=== PATIENT | male | born 1995 | race Caucasian/White ===

== ENCOUNTER 2017-08-18 17:55 | Emergency (ER) | payer BC ==
[2017-08-18 18:07] VITALS: TEMP 99.5
[2017-08-18] MEDS ORDERED: NS 1,000 ML IV ONE ×2 (18:11→18:40)
[2017-08-18] MEDS ORDERED: ONDANSETRON 4 MG/2 ML VIAL IVP ONE (18:11)
--- NOTE | 2017-08-18 18:16 | EDPHY ---
H & P Time Seen by Provider: 08/18/17 18:09 HPI/ROS: CHIEF COMPLAINT: Nausea, vomiting, abdominal pain HISTORY OF PRESENT ILLNESS: The patient is a 22 y/o male complaining of vomiting since 22:00 last night. Multiple episodes of vomiting since then. He last vomited at 16:30, 2 hours ago. Associated with mild lower abd cramping. Tolerating some oral fluids. He took Pepto-Bismol with no relief of symptoms. Denies knowing anyone with similar symptoms. Denies diarrhea, cough, headache, urinary complaints or other pertinent symptoms. REVIEW OF SYSTEMS: Aside from elements discussed in the HPI, a comprehensive 10-point review of systems was reviewed and is negative. Past Medical/Surgical History: Heart valve repair Social History: Student at , nonsmoker Smoking Status: Never smoked Physical Exam: General Appearance: Alert, pleasant Eyes: Pupils equal and round, no conjunctival pallor or injection ENT, Mouth: Mucous membranes moist Neck: Normal inspection Respiratory: Lungs are clear to auscultation Cardiovascular: Regular rate and rhythm Gastrointestinal: Mild lower abdominal tenderness. No localized tenderness. Abdomen is soft. Neurological: A&O, nonfocal Skin: Warm and dry, no rash Extremities: Nontender, no pedal edema Psychiatric: Mood and affect normal Constitutional: Initial Vital Signs Temperature (C) 37.5 C 08/18/17 18:00 Heart Rate 128 H 08/18/17 18:00 Respiratory Rate 18 08/18/17 18:00 Blood Pressure 135/79 H 08/18/17 18:00 O2 Sat (%) 96 08/18/17 18:00 O2 Delivery Mode Room Air Allergies/Adverse Reactions: No Known Allergies Allergy (Unverified 08/18/17 18:04) Home Medications: Medication Instructions Recorded NK [No Known Home Meds] 08/18/17 Medical Decision Making ED Course/Re-evaluation: The patient is a 22 y/o male presenting with nausea and vomiting since 22:00 last night. On exam he has mild lower abdominal tenderness. Sx c/w acute gastritis. Doubt appendicitis; precautions given. 4mg PO Zofran and 1L IV NS administered. Multiple students with similar sx seen in this ED today. Reassessed patient, he is feeling better after Zofran and fluids. Abd remains benign. No RLQ tenderness. Return precautions provided; patient is comfortable with this plan. Differential Diagnosis: includes though not limited to appy, SBO, acute colitis, pancreatitis - Data Points Medications Given: Discontinued Medications Sodium Chloride (Ns) 1,000 mls @ 0 mls/hr IV EDNOW ONE; Wide Open PRN Reason: Protocol Stop: 08/18/17 18:12 Last Admin: 08/18/17 19:07 Dose: Not Given Sodium Chloride (Ns) 1,000 mls @ 3,000 mls/hr IV ONCE ONE Stop: 08/18/17 18:59 Last Admin: 08/18/17 18:55 Dose: 1,000 mls Ondansetron HCl (Zofran) 4 mg IVP EDNOW ONE Stop: 08/18/17 18:12 Last Admin: 08/18/17 19:07 Dose: Not Given Ondansetron HCl (Zofran Odt) 4 mg PO EDNOW ONE Stop: 08/18/17 18:20 Last Admin: 08/18/17 18:31 Dose: 4 mg Ondansetron HCl (Zofran Odt 4 Mg Prepack#2) 1 btl TAKEHOME EDNOW ONE Stop: 08/18/17 18:20 Last Admin: 08/18/17 18:30 Dose: 1 btl Departure - Departure Disposition: Home, Routine, Self-Care Clinical Impression: Gastritis Qualifiers: Gastritis type: unspecified gastritis Chronicity: acute Gastritis bleeding: without bleeding Qualified Code(s): K29.00 - Acute gastritis without bleeding Vomiting Qualifiers: Vomiting type: unspecified Vomiting Intractability: non-intractable Nausea presence: with nausea Qualified Code(s): R11.2 - Nausea with vomiting, unspecified Condition: Good Instructions: Gastritis (ED) Additional Instructions: If you develop more pain in your right lower abdomen, please return to the emergency room. Increase fluid intake. Drink only clear fluids for the next 24 hours. Take 4mg oral Zofran as needed for nausea. Take one tablet every 6 hours as needed. Take Tylenol as directed for worsening abdominal pain Follow-up with your primary doctor within 72 hours. Return to the Emergency Department for fever, chest pain, shortness of breath, increasing pain, or other worsening of condition. Referrals: [facility],. [Clinic] - As per Instructions Report Scribed for: Bing Rodriguez Report Scribed by: Felisha Nowak Date of Report: 08/18/17 Time of Report: 18:21 Physician Review and Approval Statement: 08/18/17 18:21 Portions of this note were transcribed by a medical technologist hematology. I personally performed a history, physical exam, medical decision making, and confirmed accuracy of information the transcribed note.
[2017-08-18] MEDS ORDERED: ONDANSETRON DISINTEGRATING 4 MG TAB PO ONE (18:19)
[2017-08-18] MEDS ORDERED: ONDANSETRON 4MG PREPACK#2 BTL TAKEHOME ONE (18:19)
[2017-08-18 19:43] VITALS: BP 129/78; PULSE 115; RESP 16; O2SAT 97
== END 2017-08-18 19:41 | disposition home or self-care (01) ==
DX: K29.00 Acute gastritis without bleeding (principal)

== ENCOUNTER 2017-09-26 16:57 | Emergency (ER) | payer BC ==
[2017-09-26 17:02] VITALS: RESP 18
--- NOTE | 2017-09-26 17:14 | CPEKG ---
Heart Rate: 90 RR Interval: 667 P-R Interval: 168 QRSD Interval: 104 QT Interval: 352 QTC Interval: 431 P [place]: 43 QRS [place]: 18 T Wave [place]: 49 EKG Severity - BORDERLINE ECG - EKG Impression: SINUS RHYTHM EKG Impression: BORDERLINE Q WAVES IN LATERAL LEADS EKG Impression: LATERAL Q WAVES, PROBABLY NORMAL VARIATION Electronically Signed By: Juan Manuel Villa 26-Sep-2017 21:26:33
--- NOTE | 2017-09-26 17:14 | EDPHY ---
General - History Smoking Status: Never smoked Narrative: CHIEF COMPLAINT: Chest pain, shortness of breath HISTORY OF PRESENT ILLNESS: Patient complains of 2 days history of chest pressure and shortness of breath. [id number]. Constant duration. Worse with exertion. Worse when leaning forward. Improvement when supine in when resting. No sharp pain. Described as a pressure. No fever. No cough. No trauma. He did have a pulmonic valve replacement on September 17 in [place]. He felt well approximately 2 days after this until 2 days ago. He has not yet been evaluated postoperatively since discharge. No other associated complaints or modifying factors. REVIEW OF SYSTEMS: Ten systems reviewed and are negative unless otherwise noted in the HPI PCP: In [facility] SPECIALISTS: Dr. Ori Baer, conventions assistant in [place] PAST MEDICAL HISTORY: Congenital pulmonic valve dysfunction PAST SURGICAL HISTORY: Pulmonic valve replacement x3 SOCIAL HISTORY: Nonsmoker. [employer] student FAMILY HISTORY: Noncontributory EXAMINATION General Appearance: Alert, no distress, well-appearing Head: normocephalic, atraumatic Eyes: Pupils equal and round, no conjunctival pallor or injection ENT, Mouth: Mucous membranes moist. Airway widely patent Neck: Normal inspection, supple, non-tender Respiratory: Lungs are clear to auscultation. No wheezing, rhonchi or crackles. No diminishment. No consolidation or distress Cardiovascular: Regular rate and rhythm. Diastolic murmur. Gastrointestinal: Abdomen is soft and nontender Back: non-tender, no bony abnormalities Neurological: A&O, nonfocal, normal gait Skin: Warm and dry, no rash. No petechiae or purpura Extremities: Nontender, no pedal edema Psychiatric: Mood and affect normal DIFFERENTIAL DIAGNOSES: Including but not limited to PE, ACS, pleural effusion, pericardial effusion, cardiac tamponade, myocarditis, pulmonic valve dysfunction, pneumonia, atelectasis MDM: 5:15 p.m. Two days of mild chest pressure and shortness of breath in patient with recent pulmonic valve replacement on September 17. He is well-appearing and nontoxic. Vital signs are within normal limits. I have discussed with Dr. Villa. laboratory studies ordered, IV placement, echocardiogram ordered hand. He EKG is unremarkable. He is resting comfortably in no acute distress. 6:05 p.m. CBC chemistry a in coags are within normal limits. D-dimer pending. Troponin pending. 6:20 p.m. D-dimer within normal limits. Troponin negative. BNP normal. Chest x-ray as read by me reveals no acute findings. 6:44 p.m. Notified by conventions assistant Dr. Waterman. Echocardiogram the read as a normal study. 7:00 p.m. Patient re-evaluated. Resting comfortably in no acute distress. We discussed all of the negative findings and a normal echocardiogram. We discussed discharge home with anti-inflammatories. We discussed ED precautions and following up with the local conventions assistant to establish patient care. He is comfortable with this plan at this time he will be discharged home in stable condition. SUPERVISION: Patient was evaluated and examined in conjunction with my secondary supervising physician as documented. We have both examined the patient. (Sundeep Martinez) Medical Decision Making: I did not see this patient when he was in the ED. However, I discussed the patient's care with the PA while the patient was in the emergency department. I agree with treatment plan and management. I am the secondary supervising physician (Juan Manuel Villa) - Objective Vital Signs: Initial Vital Signs Temperature (C) 36.4 C 09/26/17 16:59 Heart Rate 82 09/26/17 16:59 Respiratory Rate 18 09/26/17 16:59 Blood Pressure 136/106 H 09/26/17 16:59 O2 Sat (%) 97 09/26/17 16:59 O2 Delivery Mode Room Air Allergies/Adverse Reactions: No Known Allergies Allergy (Verified 09/26/17 16:59) Home Medications: Medication Instructions Recorded ASPIRIN 09/26/17 Laboratory Results: Laboratory Results 09/26/17 17:26 09/26/17 17:26 Departure - Departure Disposition: Home, Routine, Self-Care Clinical Impression: H/O pulmonic valve replacement Chest pain Qualifiers: Chest pain type: unspecified Qualified Code(s): R07.9 - Chest pain, unspecified Condition: Good Instructions: Chest Pain (ED), Congenital Heart Disease (ED) Additional Instructions: 1. Contact the on-call conventions assistant as provided to established local care 2. Discuss with your conventions assistant in [place] 3. ED precautions as discussed Referrals: Bala Waterman MD [Medical Doctor] - As per Instructions
[2017-09-26 17:32] LABS: PLATELET COUNT 313 10^3/uL (150-400)
[2017-09-26 18:02] LABS: INR 0.98 (0.83-1.16); PROTIME(PATIENT) 13.2 SEC (12.0-15.0)
[2017-09-26 18:50] VITALS: BP 132/77; PULSE 91; O2SAT 98
[2017-09-26 19:10] VITALS: TEMP 99
--- NOTE | 2017-09-26 19:37 | ECHO ---
[email or web address] [address] [address] Main: [phone] Fax: Transthoracic Echocardiogram Name: IRA LORENZO MR#: [id number] Study Date: 09/26/2017 Study Time: 05:42 PM Date of : 1995 Age: 22 year(s) Height: 182.9 cm (72 in.) Weight: 102.06 kg (225 lb.) BSA: 2.24 m2 Gender: Male Examination: Echo Indication: Chest pain/SOB x 2 days (PV surgery last week - Sloane valve) / hx of Ross procedure age 1 Image Quality: Contrast: Requested by: Sundeep Martinez BP: 112 mmHg/61 mmHg Heart Rate: Rhythm: Indication: Chest pain/SOB x 2 days (PV surgery last week - Sloane valve) / hx of Ross procedure age 1 Procedure Staff Java Flex Developer: Penelope Cartagena Reading Physician: Sybil Chen Requesting Provider: Conclusions: Normal size left ventricle. No LV hypertrophy. Normal global systolic LV function. EF is 64 %. There is paradoxic septal motion suggestive of bundle branch block, paced cardiac rhythm, or prior cardiac surgery. Normal size right ventricle. Normal RV function. The right atrium is borderline dilated. Trivial to mild mitral regurgitation. The valve in the aortic position is the patient's rampart pulmonic valve. Normal function without stenosis or regurgitation. Patient is s/p Sloane valve implant in the pulmonic position. PV max PG is 25mmHG. PV mean PG is 14mmHG.. There is no previous echocardiogram for comparison. Measurements: Chambers Valvular Assessment AV/MV Valvular Assessment TV/PV Normal Normal Normal Name Value Range Name Value Range Name Value Range Ao Evon (MM): 3.6 cm (2.2 cm-3.7 AV Vmax: 1.37 m/s (1 m/s-1.7 PV Vmax: 2.42 m/s (0.6 m/s-0.9 cm) m/s) m/s) IVSd (2D): 0.7 cm (0.6 cm-1.1 AV maxP mmHg ( - ) PV Vmean: 1.59 m/s ( - ) cm) AV meanP mmHg ( - ) PV PGmax: 23 mmHg ( - ) LVDd (2D): 5.2 cm (4.2 cm-5.9 MV E Vmax: 0.86 m/s ( - ) PV PGmean: 13 mmHg ( - ) cm) MV A Vmax: 0.57 m/s ( - ) PV VTI: 47.10 cm ( - ) LVDs (2D): 3.7 cm (2.1 cm-4 MV E/A: 1.51 ( - ) cm) Patient: IRA LORENZO Study Date: 09/26/2017 Page 1 of 2 05:42 PM LVPWd (2D): 0.7 cm (0.6 cm-1 cm) LVEF (MOD4): 64 % (>=55 %) Continued Measurements: Chambers Valvular Assessment AV/MV Name Value Name Value LADs: 4.3 cm MV E/E' Septal: 9.00 LADs Lon.0 cm MV E/E' Lateral: 5.80 LA Area: 15.6 cm2 Additional Vessels Name Value Ao Ascendin.7 cm Findings: Left Ventricle: Normal size left ventricle. No LV hypertrophy. Normal global systolic LV function. EF is 64 %. There is paradoxic septal motion suggestive of bundle branch block, paced cardiac rhythm, or prior cardiac surgery. Right Ventricle: Normal size right ventricle. Normal RV function. Left Atrium: The left atrium is normal in size. Right Atrium: The right atrium is borderline dilated. Mitral Valve: The mitral valve is normal in appearance and function. Trivial to mild mitral regurgitation. Aortic Valve: The valve in the aortic position is the patient's rampart pulmonic valve. Normal function without stenosis or regurgitation. Tricuspid Valve: The tricuspid valve is normal in appearance and function. Trivial tricuspid valve regurgitation. Pulmonic Valve: Patient is s/p Sloane valve implant in the pulmonic position. PV max PG is 25mmHG. PV mean PG is 14mmHG.. Aorta: The aorta is normal. Pericardium: No pericardial effusion. (No Signature Object) Patient: IRA LORENZO Study Date: 09/26/2017 Page 2 of 2 05:42 PM D:_[id number]
== END 2017-09-26 19:09 | disposition home or self-care (01) ==
DX: R07.9 Chest pain, unspecified (principal); Z79.82 Long term (current) use of aspirin; Z95.2 Presence of prosthetic heart valve

== ENCOUNTER 2018-05-25 17:54 | Observation (INO) | payer BC ==
--- NOTE | 2018-05-25 18:09 | EDPHY ---
H & P Stated Complaint: ETOH 3 DAYS AGO HAS FELT ABD DISTRESS/NAUSEA/DIZZYNESS Time Seen by Provider: 05/25/18 18:08 HPI/ROS: CHIEF COMPLAINT: Withdrawal symptoms HISTORY OF PRESENT ILLNESS: The patient presents the emergency department with complaints of withdrawal symptoms over the past several days. The patient reported he had been drinking heavily. He reportedly brought benzodiazepine like drug from the Internet several weeks ago. He reports that over the past 2 weeks he has used approximately 100 mg of Etizolam. The patient last used to 1 mg dose on Saturday. His last drink was on . The patient is also complaining of some mild upper respiratory congestion and slight nausea. He reports his roommates are also sick with similar symptoms. The patient's past medical history is significant for pulmonic valve replacement last year. He denies any complaints of chest pain or dyspnea. REVIEW OF SYSTEMS: A comprehensive 10 point review of systems is otherwise negative aside from elements mentioned in the history of present illness. Source: Patient Exam Limitations: No limitations - Personal History Current Tetanus Diphtheria and Acellular Pertussis (TDAP): Yes - Medical/Surgical History Hx Asthma: No Hx Chronic Respiratory Disease: No Hx Diabetes: No Hx Cardiac Disease: Yes Hx Renal Disease: No Hx Cirrhosis: No Hx Alcoholism: No Hx HIV/AIDS: No Hx Splenectomy or Spleen Trauma: No Other PMH: heart valve repair (congenital defect) - Social History Smoking Status: Never smoked - Physical Exam Exam: General Appearance: Alert, no distress Eyes: Pupils equal and round no pallor or injection ENT, Mouth: Mucous membranes moist Respiratory: There are no retractions, lungs are clear to auscultation Cardiovascular: Regular rate and rhythm Gastrointestinal: Abdomen is soft and nontender, no masses, bowel sounds normal Neurological: A&O, normal motor function, normal sensory exam, normal cranial nerves Skin: Warm and dry, no rashes Musculoskeletal: Neck is supple nontender Extremities: symmetrical, full range of motion Psychiatric: Patient is oriented X 3, there is no agitation Constitutional: Initial Vital Signs Temperature (C) 37 C 05/25/18 17:58 Heart Rate 96 05/25/18 17:58 Respiratory Rate 18 05/25/18 17:58 Blood Pressure 136/99 H 05/25/18 17:58 O2 Sat (%) 96 05/25/18 17:58 O2 Delivery Mode Room Air Allergies/Adverse Reactions: No Known Allergies Allergy (Verified 05/25/18 17:58) Home Medications: Medication Instructions Recorded Aspirin [Aspirin 81mg (*)] 81 mg PO DAILY 09/26/17 Gabapentin [Neurontin 300 MG (*)] 300 mg PO HS 05/25/18 Medical Decision Making - Diagnostics EKG Interpretation: EKG: Complete interpretation has been separately recorded in the [facility] archive. Summary impression: Sinus rhythm, rate 89 ED Course/Re-evaluation: Database in the emergency department: CBC: Within normal limits Basic metabolic panel within normal limits ED course: The patient presents to the ED with symptoms of mild benzodiazepine withdrawal. The patient is maintaining appropriately. Aside from a very slight tachycardia he has no acute complaints. The patient is quite concerned about the possibility of a withdrawal seizure given the amount of benzodiazepine he has used over the past 2 weeks. The patient would like to be admitted to the hospital for observation this evening. I did discuss the case with Dr. Bansal from the hospitalist service who will admit the patient for observation. The patient required no benzodiazepines in the emergency department. Differential Diagnosis: Differential diagnosis considered includes alcohol withdrawal, benzodiazepine withdrawal, seizure, dehydration, metabolic derangement - Data Points Laboratory Results: Laboratory Results 05/25/18 19:15 05/25/18 19:15 05/25/18 05/25/18 19:15 19:15 WBC 7.23 10^3/uL 10^3/uL (3.80-9.50) RBC 5.32 10^6/uL 10^6/uL (4.40-6.38) Hgb 17.1 g/dL g/dL (13.7-17.5) Hct 48.4 % % (40.0-51.0) MCV 91.0 fL fL (81.5-99.8) MCH 32.1 pg pg (27.9-34.1) MCHC 35.3 g/dL g/dL (32.4-36.7) RDW 12.0 % % (11.5-15.2) Plt Count 284 10^3/uL 10^3/uL (150-400) MPV 9.4 fL fL (8.7-11.7) Neut % (Auto) 68.1 % % (39.3-74.2) Lymph % (Auto) 21.0 % % (15.0-45.0) [place] % (Auto) 9.4 % % (4.5-13.0) Eos % (Auto) 0.3 % L % (0.6-7.6) Baso % (Auto) 0.8 % % (0.3-1.7) Nucleat RBC Rel Count 0.0 % % (0.0-0.2) Absolute Neuts (auto) 4.92 10^3/uL 10^3/uL (1.70-6.50) Absolute Lymphs (auto) 1.52 10^3/uL 10^3/uL (1.00-3.00) Absolute Monos (auto) 0.68 10^3/uL 10^3/uL (0.30-0.80) Absolute Eos (auto) 0.02 10^3/uL L 10^3/uL (0.03-0.40) Absolute Basos (auto) 0.06 10^3/uL 10^3/uL (0.02-0.10) Absolute Nucleated RBC 0.00 10^3/uL 10^3/uL (0-0.01) Immature Gran % 0.4 % % (0.0-1.1) Immature Gran # 0.03 10^3/uL 10^3/uL (0.00-0.10) Sodium 139 mEq/L mEq/L (135-145) Potassium 4.4 mEq/L mEq/L (3.3-5.0) Chloride 100 mEq/L mEq/L (97-110) Carbon Dioxide 23 mEq/l mEq/l (22-31) Anion Gap 16 mEq/L mEq/L (8-16) BUN 10 mg/dL mg/dL (7-23) Creatinine 0.7 mg/dL mg/dL (0.7-1.3) Estimated GFR > 60 Glucose 108 mg/dL H mg/dL (70-100) Calcium 10.2 mg/dL mg/dL (8.5-10.4) Medications Given: Discontinued Medications Sodium Chloride (Ns) 1,000 mls @ 0 mls/hr IV EDNOW ONE; Wide Open PRN Reason: Protocol Stop: 05/25/18 18:48 Last Admin: 05/25/18 19:09 Dose: 1,000 mls Departure - Departure
[2018-05-25] MEDS ORDERED: NS 1,000 ML IV ONE (18:47)
--- NOTE | 2018-05-25 19:34 | CPEKG ---
Test Reason : OPEN Blood Pressure : / mmHG Vent. Rate : 089 BPM Atrial Rate : 095 BPM P-R Int : 174 ms QRS Dur : 103 ms QT Int : 339 ms P-R-T Axes : 058 -02 030 degrees QTc Int : 413 ms Normal sinus rhythm Probable left ventricular hypertrophy Confirmed by Jose Simon ([id number]) on 05/25/2018 7:34:17 PM Referred By: Confirmed By:Jose Simon
[2018-05-25 19:38] LABS: PLATELET COUNT 284 10^3/uL (150-400)
[2018-05-25] MEDS ORDERED: PROMETHAZINE HCL 25 MG/ML INJ IVP PRN (21:34)
[2018-05-25] MEDS ORDERED: ONDANSETRON 4 MG/2 ML VIAL IVP PRN (21:34)
[2018-05-25] MEDS ORDERED: diphenhydrAMINE 25 MG CAP PO PRN (21:34)
[2018-05-25] MEDS ORDERED: IBUPROFEN 200 MG TAB PO PRN (21:34)
[2018-05-25] MEDS ORDERED: ACETAMINOPHEN 325 MG TAB PO PRN (21:34)
[2018-05-25] MEDS ORDERED: LORazepam 2 MG/ML INJ IVP PRN (21:37)
[2018-05-25] MEDS ORDERED: LORazepam 1 MG TAB PO PRN (21:37)
--- NOTE | 2018-05-25 21:46 | PDGENHP ---
History and Physical - Chief Complaint Acute anxiety - History of Present Illness Primary care provider: None Primary cardiothoracic surgeon: Dr. Ori Baer HPI: 23-year-old male presenting with acute on chronic anxiety characterized as severe restlessness with associated insomnia, photosensitivity, dry heaves, sinus congestion, sensation of pulsating abdomen with onset of symptoms approximately 2 days ago and duration persistently worsening thereafter. The patient reports that the symptom onset was after a particularly heavy night of drinking, notably on 05/22. The symptoms have occurred in the context of the patient attempting to safely wean himself off of alcohol by utilizing a rapid taper of a benzodiazepine purchased on the Internet. He reports that over the past week, he has been taking tapered dosages of this benzodiazepine but on , he became particularly vulnerable to the urge to drink alcohol, and he went on an alcohol binge that night. On the morning of 05/23, he felt particularly nauseous, was dry heaving, and believes he vomited up his last dosage of the benzodiazepine which he attempted to take that morning. He has subsequently become increasingly anxious, unable to get to sleep until after 3:00 a.m. On a nightly basis, and he feels like his mind is racing with worry regarding whether or not he will have a seizure, whether or not his parents will find out about this, and he has taken 1 dosage of gabapentin without particular improvement. The patient is presenting tonight requesting assistance in withdrawing from alcohol and benzos. History Information - Allergies/Home Medication List Allergies/Adverse Reactions: No Known Allergies Allergy (Verified 05/25/18 17:58) Home Medications: Aspirin [Aspirin 81mg (*)] 81 mg PO DAILY 09/26/17 [Last Taken 05/25/18] Gabapentin [Neurontin 300 MG (*)] 300 mg PO HS 05/25/18 [Last Taken 05/25/18] I have personally reviewed and updated: family history, medical history, social history, surgical history - Past Medical History Additional medical history: Chronic anxiety disorder currently not in treatment. Congenital pulmonic valve abnormality - Surgical History Additional surgical history: 3 pulmonic valve surgeries, most recently 2017. Elbow surgery - Family History Additional family history: Sibling with depression, 3rd degree relative with alcoholism - Social History Smoking Status: Never smoked Alcohol Use: Heavy Drug Use: Marijuana Additional social history: Independent in his ADLs comma he is originally from [place], he is currently a [employer] student Review of Systems Review of Systems: ROS: 10pt was reviewed & negative except for what was stated in HPI & below Constitutional: Reports: malaise Gastrointestinal: Reports: vomitting, nausea Neurological: Reports: other (Anxiety, photosensitivity, insomnia) Physical Exam Physical Exam: Temp Pulse Resp BP Pulse Ox 37 C 115 H 16 158/101 H 96 05/25/18 17:58 05/25/18 20:34 05/25/18 20:34 05/25/18 20:34 05/25/18 20:34 Constitutional: not in pain, obese, uncomfortable, unkempt, No no apparent distress (Mild distress) Eyes: anicteric sclera, scleral injection, other (Dilated pupils) Ears, Nose, Mouth, Throat: moist mucous membranes, hearing normal, ears appear normal, no oral mucosal ulcers Cardiovascular: tachycardia, No systolic murmur, No irregularly irregular, No edema Respiratory: no respiratory distress, no rales or rhonchi, clear to auscultation Gastrointestinal: normoactive bowel sounds, soft, non-tender abdomen, no palpable masses Genitourinary: no bladder fullness, no bladder tenderness Skin: other (Sweaty, doughy, scattered pustules on back) Neurologic: AAOx3, sensation intact bilaterally, other (Very mild bilateral upper extremity tremor), No asterixes Psychiatric: not encephalopathic, thought process linear, anxious, other ( Slightly rapid speech but coherent, follows commands), No agitated Lab Data & Imaging Review 05/25/18 19:15 05/25/18 19:15 WBC 7.23 10^3/uL (3.80-9.50) 05/25/18 19:15 RBC 5.32 10^6/uL (4.40-6.38) 05/25/18 19:15 Hgb 17.1 g/dL (13.7-17.5) 05/25/18 19:15 Hct 48.4 % (40.0-51.0) 05/25/18 19:15 MCV 91.0 fL (81.5-99.8) 05/25/18 19:15 MCH 32.1 pg (27.9-34.1) 05/25/18 19:15 MCHC 35.3 g/dL (32.4-36.7) 05/25/18 19:15 RDW 12.0 % (11.5-15.2) 05/25/18 19:15 Plt Count 284 10^3/uL (150-400) 05/25/18 19:15 MPV 9.4 fL (8.7-11.7) 05/25/18 19:15 Neut % (Auto) 68.1 % (39.3-74.2) 05/25/18 19:15 Lymph % (Auto) 21.0 % (15.0-45.0) 05/25/18 19:15 [place] % (Auto) 9.4 % (4.5-13.0) 05/25/18 19:15 Eos % (Auto) 0.3 % (0.6-7.6) L 05/25/18 19:15 Baso % (Auto) 0.8 % (0.3-1.7) 05/25/18:15 Nucleat RBC Rel Count 0.0 % (0.0-0.2) 05/25/18 19:15 Absolute Neuts (auto) 4.92 10^3/uL (1.70-6.50) 05/25/18 19:15 Absolute Lymphs (auto) 1.52 10^3/uL (1.00-3.00) 05/25/18 19:15 Absolute Monos (auto) 0.68 10^3/uL (0.30-0.80) 05/25/18 19:15 Absolute Eos (auto) 0.02 10^3/uL (0.03-0.40) L 05/25/18 19:15 Absolute Basos (auto) 0.06 10^3/uL (0.02-0.10) 05/25/18 19:15 Absolute Nucleated RBC 0.00 10^3/uL (0-0.01) 05/25/18 19:15 Immature Gran % 0.4 % (0.0-1.1) 05/25/18 19:15 Immature Gran # 0.03 10^3/uL (0.00-0.10) 05/25/18 19:15 Sodium 139 mEq/L (135-145) 05/25/18 19:15 Potassium 4.4 mEq/L (3.3-5.0) 05/25/18 19:15 Chloride 100 mEq/L (97-110) 05/25/18 19:15 Carbon Dioxide 23 mEq/l (22-31) 05/25/18 19:15 Anion Gap 16 mEq/L (8-16) 05/25/18 19:15 BUN 10 mg/dL (7-23) 05/25/18 19:15 Creatinine 0.7 mg/dL (0.7-1.3) 05/25/18 19:15 Estimated GFR > 60 05/25/18 19:15 Glucose 108 mg/dL (70-100) H 05/25/18 19:15 Calcium 10.2 mg/dL (8.5-10.4) 05/25/18 19:15 Lipase 45 IU/L (23-300) 05/25/18 19:15 Visualized and Interpreted EKG results: Yes EKG Interpretation: Positive for: other (Normal sinus rhythm, possible left ventricular hypertrophy) Assessment & Plan Assessment: 23-year-old male presents with acute alcohol withdrawal Plan: 1. Alcohol withdrawal. Acute, new problem this provider, further workup indicated. Evidenced by tachycardia, anxiety, insomnia, GI symptoms, patient is presenting to electively abstain from alcohol and will most likely require assistance in overcoming withdrawal symptoms -the patient's time course for withdrawal will be somewhat skewed by the fact that he has been taking benzodiazepines of unclear strength which he has obtained from the Internet and although he is approximately 48 hours sober, it is unclear whether his utilization of benzodiazepines over the past week will be helpful or harmful easing his transition -patient currently prefers not to use benzodiazepines for withdrawal, but he is open to having them as backup in case his condition escalates, and will place him on the CIWA protocol -given that his primary symptoms currently are nausea and insomnia, will give him Zofran and Phenergan as needed, high-dose trazodone this evening in an attempt to avoid benzos -given his persistent abdominal symptoms and his perseveration on having liver disease, will check a liver panel to reassure, has no other evidence of impaired synthetic function on CBC, lipase normal -get social work assistance tomorrow to help establish him with patient resources 2. Congenital pulmonic valve. Unclear as to the exact abnormality, reviewed his outside records including 09/26/[address] emergency [address] report [address] Dr. Juan Manuel Villa, recounts the patient's presentation for shortness of breath following a recent pulmonic valve surgery on 09/17/2017, echocardiogram demonstrated ejection fraction of 64%, bundle-branch block, pulmonic valve in the aortic valve position but otherwise unremarkable echo -unlikely to be contributing to his current presentation or complicating his care Diet. Regular as tolerated Prophylaxis. Intermediate risk if bed-bound, Lovenox 40 in a.m. Code. Full Disposition. Anticipated discharge 05/26, pending stabilization of condition outlined above. I have discussed patient's presentation with Dr. Heraclio Simon, he and I both agree the patient warrants observation overnight to ensure stabilization of his situation as well as ensure proper outpatient follow-up and guidance regarding management of outpatient medication.
[2018-05-25] MEDS ORDERED: traZODone 50 MG TAB PO SCH (22:00)
[2018-05-25] MEDS: ONDANSETRON DISINTEGRATING 4 MG TAB PO PRN (22:05)
[2018-05-26] MEDS ORDERED: ASPIRIN 81 MG CHEWABLE TAB PO SCH (09:00)
[2018-05-26] MEDS ORDERED: ENOXAPARIN 40 MG/0.4 ML SYR SC SCH (09:00)
[2018-05-26] MEDS: ONDANSETRON DISINTEGRATING 4 MG TAB PO PRN (09:01)
[2018-05-26] MEDS: PROMETHAZINE HCL 25 MG TAB PO PRN ×2 (09:56→15:57)
[2018-05-26] MEDS ORDERED: PANTOPRAZOLE SODIUM 40 MG TAB PO SCH (10:00)
[2018-05-26] MEDS ORDERED: ONDANSETRON DISINTEGRATING 4 MG TAB PO PRN (10:00)
--- NOTE | 2018-05-26 10:08 | HOSPPROG ---
Hospitalist Progress Note Assessment/Plan: DIAGNOSES: * severe anxiety disorder with self medicating using alcohol and Internet at obtained "benzodiazepine" * Patient here seeking help detoxing from these * probable alcohol-induced gastritis causing abdominal pain and nausea * chronic anxiety disorder * Previously most effective therapies have been exercise, good diet, good sleep , and other measures to take care of mental health * Has not obtained benefit from SSRIs in the past IV long discussion with the patient at the bedside today. On review of the patient's issues his anxiety is clearly chronic and has been severe. He has worked with physicians in the past to have prescribed SSRIs which she has never found helpful. He says the most effective way of managing this for him is been daily exercise, and doing other health measures including diet, sleep, mental health exercises. He states that he never used benzodiazepine before the past 2 weeks, and never wants to take them again. He does not remember much of the past 2 weeks because of the use of these medicines and he clearly recognizes that these are very counterproductive for him. I did review with him and he understands that any "medications" that he might get from the Internet should be suspect in terms of what's really in them. At this point he wants to get back to daily exercise, getting good sleep, eating well, and taking care of his mental health in other ways besides medication. However he still too symptomatic from nausea and abdominal pain he feels to be able to go home at this point. PLANS: * At present will need ongoing treatment with benzodiazepine and IV hydration due to nausea abdominal pain * Will add proton pump inhibitor * Will try to avoid using any benzodiazepines here * He is very committed at this time to avoiding alcohol and benzodiazepine use in the future, very committed to going back to exercising and taking care of himself physically and mentally without medications of any kind; he is agreeable to using acid suppression as needed and using p.r.n. Trazodone for sleep if necessary * Potential discharge later today or tomorrow depending on how he is doing with his nausea; if nausea persists through the day and he requires ongoing treatment here will change him to inpatient care SUBJECTIVE: Patient has severe nausea ongoing along with some mild epigastric pain Feels lightheaded, but at this moment does not feel any significant anxiety Denies any confusion or delirium symptoms or tremor OBJECTIVE Vitals reviewed: Blood pressures improved otherwise stable vitals with no fever Exam: alert oriented Not really very anxious now but looks uncomfortable from nausea No tremor, no signs of confusion or disorientation, normal affect and interacts normally with me at this time skin warm dry color ok resps not labored lungs clear BSs heart regular abd soft nondistended nontender, bowel sounds present limbs warm, no edema iv site ok Objective: Vital Signs Temp Pulse Resp BP Pulse Ox 36.8 C 70 16 113/62 95 05/26/18 08:06 05/26/18 08:06 05/26/18 08:06 05/26/18 08:06 05/26/18 04:00 05/25/18 05/26/18 05/27/18 06:59 06:59 06:59 Intake Total 1000 Balance 1000 - Time Spent With Patient Time Spent with Patient: greater than 35 minutes Time Spent with Patient: Greater than 35 minutes spent on this patients care, greater than 50% of time spent counseling, educating, and coordinating care regarding the above mentioned plan. ICD10 Worksheet Patient Problems: Problems Problem Status Onset Chest pain Acute Gastritis Acute H/O pulmonic valve replacement Acute
--- NOTE | 2018-05-26 12:30 | ASMTCMCOM ---
CM Note CM Note Notes: Pts case discussed w/ RA Tamayo. Pt is a 23 y/o man admitted for benzo withdrawals. Pt has a hx of abusing etoh. Pt was trying to detox himself at home w/ benzos. CM met w/ pt. CM provided pt w/ a list of AA meetings in [place]. CM provided pt w/ a list of potential therapist that he could see. CAGE completed. CM recommended pt going to [facility] at if he needed more assistance w/ his etoh. No other needs at this time. CM available for changes. Plan: Independent Date Signed: 05/26/2018 12:27 PM Electronically Signed By:LILLIE Mcnulty
--- NOTE | 2018-05-26 12:30 | ASMTCAGE ---
CAGE Do you feel you ought to Answers: Yes cut down on your drinking or drug use? Do people annoy you by Answers: No criticizing your drinking or drug use? Do you feel guilty about Answers: No your drinking or drug use? Do you drink or use drugs Answers: Yes first thing in the morning ([employer])? Date Signed: 05/26/2018 12:28 PM Electronically Signed By:LILLIE Mcnulty
[2018-05-26 15:38] VITALS: BP 115/64
--- NOTE | 2018-05-26 17:51 | PDDCSUM ---
Discharge Summary Discharge Summary: DISCHARGE DIAGNOSES: * acute dehydration * nausea vomiting, suspected gastropathy from alcohol and aspirin * exacerbation of chronic anxiety disorder * benzodiazepine abuse * alcohol abuse * patient with self referral for assessment and treatment of all of the above * history of surgery for congenital heart disease HOSPITAL COURSE SUMMARY: This patient who has chronic anxiety disorder that has been refractory to treatment with SSRI therapy but benefitted in the past with exercise and other appropriate measures, began to drink alcohol and also obtained some benzodiazepines 2 weeks ago that he said he got from the Internet. He used both of these substances heavily over the last 2 weeks really in way of self medication for his chronic anxiety issues. He had not been using alcohol in a steady ongoing fashion prior to this but had some alcohol abuse issues in the past. He was admitted here with nausea vomiting dehydration and mild epigastric pain. He is felt to likely to have an alcohol and aspirin induced gastritis. He responded well here to hydration, antiemetics, and acid suppression. He is feeling much better at this time and feels like he can leave the hospital. He is up walking the hallways and is eating and drinking without difficulty. The patient has not shown any signs of any withdrawal which is what I would expect given the short duration of his current use of these substances. The patient discussed at length with providers here that he wished to never use any benzodiazepines ever again, and understood that he was having very inappropriate use of alcohol and feels that he will not have any problem staying away from alcohol at this time. He says he does have exercise, diet, and a variety of other measures he uses for stress reduction that have been at successful for him in the past but he has not been applying any of these recently. He plans to get back to all of those helpful measures at this time. He does feel like he he can get back into the classroom without too much difficulty. He does state however that he is going to go back to [facility] in a couple of days to visit his parents were both physicians, and to make sure he gets back on his feet solidly. He does not feel particularly depressed at this time and does not endorse any suicidal ideation. PENDING TEST RESULTS: None MEDICATION CHANGES: Trazodone as needed for sleep 150 mg at HS Zofran as needed for nausea Zantac 150 mg twice daily for 2-4 weeks FOLLOW-UP PLAN: With student health service at the [employer] in the next 1-2 weeks Greater than 35 minutes bedside and care coordination time today
[2018-05-26] MEDS ORDERED: GABAPENTIN 300 MG CAP PO SCH (21:00)
== END 2018-05-26 18:45 | disposition home or self-care (01) ==
LOC: F3E 21:01
PROVIDERS: ADMIT Internal Medicine; ATTEND Internal Medicine
DX: F10.239 Alcohol dependence with withdrawal, unspecified (principal); E86.0 Dehydration; R11.2 Nausea with vomiting, unspecified; F13.10 Sedative, hypnotic or anxiolytic abuse, uncomplicated; F41.8 Other specified anxiety disorders
CPT/HCPCS: 93005; 96360; 99285; G0378

== ENCOUNTER 2018-12-26 13:23 | Emergency (ER) | payer BC ==
[2018-12-26] MEDS ORDERED: ONDANSETRON 4 MG/2 ML VIAL ONE (15:05)
[2018-12-26] MEDS ORDERED: NS 1,000 ML IV ONE (15:17)
[2018-12-26] MEDS ORDERED: ONDANSETRON 4 MG/2 ML VIAL IVP ONE (15:23)
[2018-12-26 15:36] LABS: PLATELET COUNT 364 10^3/uL (150-400)
--- NOTE | 2018-12-26 15:51 | EDPHY ---
HPI/HX/ROS/PE/MDM Narrative: CHIEF COMPLAINT: Abdominal pain, nausea, diarrhea HPI: This patient is a 23 year old male with history of artificial heart valve and remote history of pancreatitis at age 13. He complains of nausea, stomach pain, and dark-colored diarrhea ongoing since Saturday. He endorses drinking a larger amount of alcohol than usual on Saturday and states he cannot remember all the events of that evening but notes he discovered four of his Zofran tablets were missing the next morning. He denies any vomiting. He has concern for a possible ulcer because two months ago, he had abdominal pain and some blood in his stool, but these symptoms resolved spontaneously. He additionally endorses history of fatty liver. He has established care with gastroenterology and has HIDA scan scheduled for Saturday. He takes ASA 81mg daily due to his heart valve surgeries. He denies chest pain, shortness of breath, weakness, or other associated symptoms. REVIEW OF SYSTEMS: A comprehensive 10 system review of systems is otherwise negative aside from elements mentioned in the history of present illness and medical decision making. PMH: Artificial heart valve and stent placement. Pancreatitis at age 13. SOCIAL HISTORY: Single. Lives in [place]. Student. PHYSICAL EXAM: General:Patient is alert, in no acute distress. ENT:Eyes are normal to inspection. ENT inspection normal. Neck: Normal inspection. Full range of motion. Respiratory:No respiratory distress. Breath sounds normal bilaterally. Cardiovascular: Regular rate and rhythm. Strong peripheral pulses. Normal cap refill. Abdomen:The abdomen is nontender to palpation. There are no peritoneal signs. There are normal bowel sounds. Back: Normal to inspection. No tenderness to palpation. Skin: Normal color. No rash. Warm and dry. Extremities: Normal appearance. Full range of motion. Neuro: Oriented x3. Normal motor function. Normal sensory function. ED Course: This 23 year old male presents with nausea, stomach pain, and dark-colored diarrhea ongoing since Saturday. Plan for labs including CBC, chemistries , liver, lipase, and occult blood from stool sample. Laboratory studies largely unremarkable. Occult blood screen is negative. 17:32 Reassessed patient. Discussed additional workup including CT abdomen/ pelvis for further evaluation. He declines CT and wishes to go home. He will follow up with gastroenterology as scheduled. Plan to discharge home in good condition. Follow up and return precautions discussed. The patient is comfortable with this plan. - Data Points Laboratory Results: Laboratory Results 12/26/18 15:20 12/26/18 15:20 12/26/18 12/26/18 12/26/18 16:20 15:20 15:20 WBC 7.96 10^3/uL 10^3/uL (3.80-9.50) RBC 5.07 10^6/uL 10^6/uL (4.40-6.38) Hgb 16.4 g/dL g/dL (13.7-17.5) Hct 44.7 % % (40.0-51.0) MCV 88.2 fL fL (81.5-99.8) MCH 32.3 pg pg (27.9-34.1) MCHC 36.7 g/dL g/dL (32.4-36.7) RDW 12.1 % % (11.5-15.2) Plt Count 364 10^3/uL 10^3/uL (150-400) MPV 9.0 fL fL (8.7-11.7) Neut % (Auto) Not Reported Lymph % (Auto) Not Reported [place] % (Auto) Not Reported Eos % (Auto) Not Reported Baso % (Auto) Not Reported Nucleat RBC Rel Count Not Reported Absolute Neuts (auto) Not Reported Absolute Lymphs (auto) Not Reported Absolute Monos (auto) Not Reported Absolute Eos (auto) Not Reported Absolute Basos (auto) Not Reported Absolute Nucleated RBC Not Reported Immature Gran % Not Reported Seg Neutrophils % 60.0 % % Band Neutrophils % 0.0 % % Lymphocytes % 34.0 % % Monocytes % 3.0 % % Eosinophils % 2.0 % % Basophils % 1.0 % % Metamyelocytes % 0.0 % % Myelocytes % 0.0 % % Promyelocytes % 0.0 % % Blast Cells % 0.0 % % Immature Gran # Not Reported Absolute Seg Neuts 4.78 10^3/uL 10^3/uL (1.70-6.50) Absolute Band Neuts 0.00 10^3/uL 10^3/uL (0.00-0.70) Absolute Lymphocytes 2.71 10^3/uL 10^3/uL (1.00-3.00) Absolute Monocytes 0.24 10^3/uL L 10^3/uL (0.30-0.80) Absolute Eosinophils 0.16 10^3/uL 10^3/uL (0.03-0.40) Absolute Basophils 0.08 10^3/uL 10^3/uL (0.02-0.10) Absolute Metamyelocyte 0.00 10^3/mL 10^3/mL (0.00-0.00) Absolute Myelocytes 0.00 10^3/mL 10^3/mL (0.00-0.00) Absolute Promyelocytes 0.00 10^3/uL 10^3/uL (0.00-0.00) Absolute Plasma Cells 0.00 10^3/uL 10^3/uL (0.00-0.00) Nucleated RBCs 0 /100 WBC /100 WBC (0-0) Atypical Lymphocytes 1+ H Absolute Blast Cells 0.00 10^3/uL 10^3/uL (0.00-0.00) Plasma Cells % 0.0 % % Platelet Estimate ADEQUATE (ADEQ) Sodium 138 mEq/L mEq/L (135-145) Potassium 4.4 mEq/L mEq/L (3.5-5.2) Chloride 101 mEq/L mEq/L (97-110) Carbon Dioxide 24 mEq/l mEq/l (22-31) Anion Gap 13 mEq/L mEq/L (6-14) BUN 14 mg/dL mg/dL (7-23) Creatinine 0.9 mg/dL mg/dL (0.7-1.3) Estimated GFR > 60 Glucose 105 mg/dL H mg/dL (70-100) Calcium 10.7 mg/dL H mg/dL (8.5-10.4) Phosphorus 3.9 mg/dL mg/dL (2.5-4.5) Total Bilirubin 0.9 mg/dL mg/dL (0.1-1.4) Conjugated Bilirubin 0.3 mg/dL mg/dL (0.0-0.5) Unconjugated Bilirubin 0.6 mg/dL mg/dL (0.0-1.1) AST 44 IU/L IU/L (17-59) ALT 72 IU/L IU/L (21-72) Alkaline Phosphatase 101 IU/L IU/L (38-126) Total Protein 9.1 g/dL H g/dL (6.3-8.2) Albumin 5.3 g/dL H g/dL (3.5-5.0) Lipase 39 IU/L IU/L (23-300) Stool Occult Bld Scrn NEGATIVE (NEGATIVE) Medications Given: Discontinued Medications Sodium Chloride (Ns) 1,000 mls @ 0 mls/hr IV EDNOW ONE; Wide Open PRN Reason: Protocol Stop: 12/26/18 15:18 Last Admin: 12/26/18 15:23 Dose: 1,000 mls Ondansetron HCl (Zofran) 4 mg IVP EDNOW ONE Stop: 12/26/18 15:24 Last Admin: 12/26/18 15:23 Dose: 4 mg General Time Seen by Provider: 12/26/18 14:20 Initial Vital Signs: Initial Vital Signs Temperature (C) 36.9 C 12/26/18 13:24 Heart Rate 86 12/26/18 13:24 Respiratory Rate 18 12/26/18 13:24 Blood Pressure 135/94 H 12/26/18 13:24 O2 Sat (%) 95 12/26/18 13:24 O2 Delivery Mode Room Air Allergies/Adverse Reactions: No Known Allergies Allergy (Verified 12/26/18 13:27) Home Medications: Medication Instructions Recorded Aspirin [Aspirin 81mg (*)] 81 mg PO DAILY 09/26/17 Ondansetron Odt [Zofran Odt 4 mg 8 mg PO Q6HRS PRN #15 tab 05/26/18 (*)] Ranitidine HCl [Zantac 150mg/10ml 150 mg PO BID #30 ml 05/26/18 oral liquid (RX)] Ondansetron Odt [Zofran Odt] 4 mg PO Q4PRN PRN #10 tab 12/26/18 Departure - Departure Disposition: Home, Routine, Self-Care Clinical Impression: Diarrhea, Nausea Abdominal pain Qualifiers: Abdominal location: generalized Qualified Code(s): R10.84 - Generalized abdominal pain Condition: Good Instructions: Acute Diarrhea (ED), Acute Abdominal Pain (ED) Additional Instructions: Follow-up with your providers at [facility] this week as we discussed. Return to the Emergency Department for worsening pain, fever, severe vomiting, change in character or severity of pain or other worsening of condition. Referrals: [facility] [Provider Group] - As per Instructions Prescriptions: Ondansetron Odt [Zofran Odt] 4 mg PO Q4PRN PRN #10 tab PRN Reason: Nausea Report Scribed for: Aguila Cota Report Scribed by: Tatum Farias Date of Report: 12/26/18 Time of Report: 17:21 Physician Review and Approval Statement: Portions of this note were transcribed by an ED scribe. I personally performed the history, physical exam, and medical decision making; and confirm the accuracy of the information in the transcribed note.
[2018-12-26 17:46] VITALS: BP 128/90
== END 2018-12-26 17:44 | disposition home or self-care (01) ==
LOC: SUPCPDRO 13:23
DX: R11.0 Nausea (principal); R19.7 Diarrhea, unspecified; R10.84 Generalized abdominal pain; E86.9 Volume depletion, unspecified
CPT/HCPCS: 96374; J2405